=== PATIENT | female | born 1960 | race African-American/Black ===

== ENCOUNTER → 2018-11-28 09:47 | Outpatient (CLI) | payer MEDICARE, MEDICAID | END | disposition home or self-care (01) | LOC: D.MRI 09:47 | DX: S83.231A Complex tear of medial meniscus, current injury, right knee, initial encounter (principal) ==

== ENCOUNTER 2019-01-09 06:24 | Day surgery (SDC) | payer MEDICARE, MEDICAID ==
[~2019-01-09] VITALS: Ht 167.6 cm; Wt 104.3 kg
[~2019-01-09 06:24] MED LIST: BAYER CHEWABLE81 MG PO; CENTRUM SILVER1 EAC3 PO; HYDRALAZINE HCL25 MG PO; LIPITOR20 MG PO; LOSARTAN/HCT TAB 50-; TYLENOL W/CODEI1 TAB PO
[2019-01-09 06:43] LABS: HEMATOCRIT 35.5 % (36.0-48.0); HEMOGLOBIN 11.6 g/dL (12-16); MCH 27.4 pg (26.0-34.0); MCHC 32.7 g/dL (31.0-37.0); MCV 83.9 fL (80.0-100.0); MEAN PLATELET VOLUME 9.4 fL (7.4-10.4); RBC 4.23 10x6/uL (4.00-5.40); RDW 13.3 % (11.5-14.5)
[2019-01-09 07:34] VITALS: BP 116/65; Ht 167.6 cm; Wt 104.3 kg
[2019-01-09] MEDS ORDERED: HYDROCODON-ACE1 EA10 PO (09:35)
--- NOTE | 2019-01-09 09:45 | NUR ---
CARE TRANSFERRED TO YENY VITALE RN
--- NOTE | 2019-01-09 09:48 | NUR ---
CARE ASSUMED FROM CASE KERNS RN
--- NOTE | 2019-01-09 15:33 | NUR ---
1126 IV DC'D. CATHETER INTACT. NO BLEEDING AT SITE. BANDAID APPLIED.
--- NOTE | 2019-01-16 11:53 | OP ---
PATIENT NAME: TERESITA LORENZO MEDICAL RECORD: [id number] :56 LOCATION:[facility]AN ADMISSION DATE: SURGEON: ADAM ALDANA MD DATE OF OPERATION: 01/09/2019 PREOPERATIVE DIAGNOSIS: Lateral meniscus tear. POSTOPERATIVE DIAGNOSES: Lateral meniscus tear plus 2.2 mm chondral defect of the medial femoral condyle. PROCEDURES: 1. Arthroscopic partial lateral meniscectomy, right knee. 2. Arthroscopic abrasion chondroplasty of the medial femoral condyle. SURGEON: Adam Aldana MD ANESTHESIA: General. INTRAOPERATIVE COMPLICATIONS: None. SUMMARY OF PATHOLOGIC FINDINGS: Consistent with preoperative diagnosis, the patient had a complex tear of the posterior horn of the lateral meniscus; however, at the time of surgery she was found to have an articular defect as described above and that my opinion was best warranted to be treated with abrasion chondroplasty using the power pick from [employer]. OPERATIVE SUMMARY IN DETAIL: After obtaining the appropriate preoperative orthopedic surgery consent as well as anesthetic consultation, evaluation and clearance, the patient was brought to the operating room and placed on the operating table in supine position. After general laryngeal mask was administered, tourniquet was placed about the proximal aspect of the right lower extremity. Right lower extremity was then prepped and draped in routine sterile fashion. At this point, the appropriate timeout was taken along with all the patient identifiers agreed upon by all in the operative suite. The leg was elevated and exsanguinated, tourniquet was inflated to 350 mmHg. Routine inferolateral portal was established followed by superomedial portal and inferomedial portal. Diagnostic arthroscopy revealed the above findings. Attention was first turned to arthroscopic partial lateral meniscectomy. A combination of 3.5 full-radius resector as well as an arthroscopic meniscotome was utilized to debride the lateral meniscus back to stable meniscal elements resulting in good retained remnants of the lateral meniscus. Although tear was complex, it was not deep. Having completed this, attention was turned to the medial femoral condyle under direct arthroscopic visualization. The power pick from [employer] was utilized to place approximately 5 drill holes passed the tied germaine hoping to stimulate pseudocartilage regrowth. Having completed this, the knee was insufflated with plain Marcaine. Arthroscopy portals were closed in routine interrupted fashion using 4-0 Prolene. Sterile dressings were applied. The patient was awakened and taken to the recovery room in stable condition. All final needle and sponge counts were correct. TRANSINT:[id number] Voice Confirmation ID: [id number] DOCUMENT ID: [id number] OPERATIVE REPORT [id number] TERESITA LORENZO MD, ADAM PATRICIA at 1153 CC: [id number] DICTATION DATE: 01/16/19 1124 DECORATOR MANNEQUIN: 01/16/19 1148 [facility] 01/09/19 [address] [place] [address]
== END 2019-01-09 12:10 | disposition home or self-care (01) ==
LOC: D.OPS 06:24 → D.PAN 08:15 → D.OPS 09:00
PROVIDERS: Anesthesiology; ATTEND Orthopaedic Surgery
DX: S83.271A Complex tear of lateral meniscus, current injury, right knee, initial encounter (principal); M21.851 Other specified acquired deformities of right thigh; Z01.812 Encounter for preprocedural laboratory examination

== ENCOUNTER 2019-05-26 07:37 | Day surgery (SDC) | payer MEDICARE ==
[~2019-05-26] VITALS: Ht 167.6 cm; Wt 99.8 kg
[~2019-05-26 07:37] MED LIST changes: +HYDROCODON-ACE1 EA10 PO
[2019-05-26 08:02] LABS: HEMATOCRIT 38.1 % (36.0-48.0); HEMOGLOBIN 12.3 g/dL (12-16); MCH 27.9 pg (26.0-34.0); MCHC 32.3 g/dL (31.0-37.0); MCV 86.4 fL (80.0-100.0); MEAN PLATELET VOLUME 9.8 fL (7.4-10.4); RBC 4.41 10x6/uL (4.00-5.40); RDW 13.3 % (11.5-14.5); WBC 5.5 10x3/uL (4.8-10.8)
[2019-05-26] MEDS ORDERED: K-TAB10 MEQ PO (09:09)
[2019-05-26 09:14] VITALS: BP 133/69; Ht 167.6 cm; Wt 99.8 kg
--- NOTE | 2019-06-09 13:08 | OP ---
PATIENT NAME: TERESITA LORENZO MEDICAL RECORD: [id number] :56 LOCATION:MELI ADMISSION DATE: SURGEON: ADAM ALDANA MD DATE OF OPERATION: 05/26/2019 PREOPERATIVE DIAGNOSIS: Osteoarthritis, left hip. POSTOPERATIVE DIAGNOSIS: Osteoarthritis, left hip. PROCEDURE: Left hip injection under fluoroscopy. SURGEON: Adam Aldana MD ANESTHESIA: TIVA. INTRAOPERATIVE COMPLICATIONS: None. SUMMARY OF PATHOLOGIC FINDINGS: Consistent with preoperative diagnosis, the patient is tovf-rz-wrrigkor hip arthritis of the left hip, but also had substantial morbid obesity. OPERATIVE SUMMARY IN DETAIL: After obtaining the appropriate preoperative orthopedic surgery consent as well as anesthetic consultation, evaluation and clearance, the patient was brought to the operating room and placed on the operating table in a supine position. After general laryngeal mask airway was administered, the patient's right hip was prepped and draped. After adequate general TIVA anesthesia was administered, the patient's right hip was prepped and draped in routine sterile fashion. The needle tip was then advanced into the hip were a small amount of Isovue was utilized to be sure that the needle was in the appropriate position. This was then followed by 80 mg of Depo-Medrol approximately 6 cc of 0.25% Marcaine with epinephrine. This was withdrawn. Sterile dressings were applied. The patient was awakened and taken to recovery room in stable condition. All final needle and sponge counts were correct. TRANSINT:[id number] Voice Confirmation ID: [id number] DOCUMENT ID: [id number] 06/09/2019 Edited procedure per office, dmm. ADMA ALDANA MD at 1308 CC: [id number] DICTATION DATE: 05/26/19 1124 MUTUAL FUND SALES AGENT: 05/26/19 1505 DEP [facility] 05/26/19 [id number] [place] [address]
== END 2019-05-26 12:52 | disposition home or self-care (01) ==
LOC: D.OPS 07:37 → D.PAN 10:45 → D.OPS 12:52 → D.PAN 13:30 → D.OPS 14:45
PROVIDERS: Anesthesiology; ATTEND Orthopaedic Surgery
DX: M16.12 Unilateral primary osteoarthritis, left hip (principal); M25.562 Pain in left knee; M25.561 Pain in right knee

== ENCOUNTER → 2020-02-18 18:58 | Outpatient (CLI) | payer MEDICARE, MEDICAID ==
[2019-05-26 09:14] VITALS: BMI 35.6
[~2020-02-18 18:58] MED LIST changes: +K-TAB10 MEQ PO
== END | disposition home or self-care (01) ==
LOC: D.LABREF 18:58
PROVIDERS: ATTEND Orthopaedic Surgery
DX: M17.12 Unilateral primary osteoarthritis, left knee (principal)

== ENCOUNTER 2020-03-01 15:37 | Inpatient (IN) | payer MEDICARE, MEDICAID ==
[~2020-03-01] VITALS: Ht 167.6 cm; Wt 108.9 kg
[~2020-03-01 15:37] MED LIST changes: -LOSARTAN/HCT TAB 50-; +LOSARTAN/HCT TAB 50- PO
[2020-03-17] MEDS ORDERED: ATARAX 25 MG TA25 MG PO (10:52)
[2020-03-17] MEDS ORDERED: HYDROCODONE/APAP PO (10:56)
[2020-03-17] MEDS ORDERED: FAMOTIDINE10 MG PO (10:57)
[2020-03-17] MEDS ORDERED: LIPITOR20 MG PO (10:57)
[2020-03-17] MEDS ORDERED: LOSARTAN-HCTZ1 EAC1 PO (11:00)
[2020-03-17 11:53] LABS: BILIRUBIN NEGATIVE (NEGATIVE); KETONE NEGATIVE (NEGATIVE); NITRITE NEGATIVE (NEGATIVE); UROBILINOGEN NORMAL mg/dL (< 2)
[2020-03-17 11:54] LABS: HEMATOCRIT 38.3 % (36.0-48.0); HEMOGLOBIN 12.1 g/dL (12-16); MCH 26.8 pg (26.0-34.0); MCHC 31.6 g/dL (31.0-37.0); MCV 84.7 fL (80.0-100.0); MEAN PLATELET VOLUME 9.4 fL (7.4-10.4); PLATELET COUNT 349 10x3/uL (130-400); RBC 4.52 10x6/uL (4.00-5.40); RDW 13.5 % (11.5-14.5); WBC 5.5 10x3/uL (4.8-10.8)
[2020-03-17 12:02] LABS: APTT 28.4 SECONDS (22.8-39.4); INR 0.95 (0.85-1.17); PROTIME 12.6 SECONDS (11.6-15.0)
[2020-03-17 12:08] LABS: CALC OSMOLALITY 270 mosm/kg (275-300); CALCIUM 9.8 mg/dL (8.5-10.1); CARBON DIOXIDE 28.3 mmol/L (21.0-32.0); CHLORIDE - SERUM 100 mmol/L (98-107); CREATININE - SERUM 0.8 mg/dL (0.6-1.3); GLUCOSE 98 mg/dL (74-106); POTASSIUM - SERUM 3.5 mmol/L (3.5-5.1); SODIUM 136 mmol/L (136-145); UREA NITROGEN 9 mg/dL (7-18); eGFR NON AFRICAN AMERICAN 77 mL/min (90-120)
[2020-03-17 13:30] LABS: LYMPHOCYTES 60 % (15-50); MONOCYTES 6 % (2-11); NEUTROPHILS 34 % (40-80); PLATELET ESTIMATE NORMAL
[2020-03-22] VITALS (10 sets, daily range): BP systolic 110–153; BP diastolic 45–103; BMI 38.8
--- NOTE | 2020-03-22 10:43 | NUR ---
0940 BLOCK TO LEFT KNEE COMPLETED BY ANESTHESIA. 0945 VSS. PT STATES PAIN LEVEL IS A 0 OUT OF 10. RESPIRATIONS UNLABORED AND EVEN.
--- NOTE | 2020-03-22 12:20 | NUR ---
PLASMA BLADE USED ON SETTING 6/8. CAUTERY PAD PLACED ON RIGHT THIGH. LOT #[id number] EXP.06/20/2021
--- NOTE | 2020-03-22 13:45 | NUR ---
RECEIVED TO ROOM 1210 VIA BED FROM PACU. A/O X3. SON AT BEDSIDE. DRESSING TO LEFT KNEE IS DRY AND INTACT. DENIES PAIN AT THIS TIME.
--- NOTE | 2020-03-22 15:51 | NUR ---
PLACED ON HIGH FLOW O2 AT 2L. SATS UP IN THE 90'S. PATIENT IS ASYMPTOMATIC AT ALL TIMES. HANDS ARE VERY COLD. WILL MONITOR.
--- NOTE | 2020-03-22 16:17 | NUR ---
PULSE OX MAINTAINING 98-100% ON 2L WITH HIGH FLOW TUBING. WILL CONTINUE TO MONITOR.
--- NOTE | 2020-03-22 16:37 | NUR ---
ASSISTED WITH BED OBRIEN PER STAFF. VOIDED 200CC CLEAR YELLOW URINE. SKIN CARE PER STAFF.
--- NOTE | 2020-03-22 17:30 | NUR ---
ATE ABOUT HALF OF SUPPER BUT WAS STILL FULL FROM LATE LUNCH. PLACED ON CPM AT THIS TIME. NO C/O PAIN WITH ACTIVITY. DENIES NEEDS. NO CHANGES NOTED.
--- NOTE | 2020-03-22 19:13 | NUR ---
PATIENT RESTING IN BED WITH NO S/S OF DISTRESS. CPM TO LEFT KNEE. ASSISTED PATIENT ON AND OFF BEDPAN WITH GERMAN GONZALEZ. PATIENT DENIES OTHER NEEDS AT THIS TIME. BED IN LOWEST POSITION AND CALL LIGHT WITHIN REACH. ENCOURAGED THE PATIENT TO CALL IF HE HAS NEEDS. EMPTED 1000ML FROM CATH BAG. WILL CONTINUE TO MONITOR.
--- NOTE | 2020-03-22 20:00 | NUR ---
ADMINISTERED MEDS PER ORDERS. PATIENT DENIES OTHER NEEDS. WILL CONTINUE TO MONITOR.
--- NOTE | 2020-03-22 20:30 | NUR ---
PATIENT OFF CPM. ASSISTED PATIENT ON AND OFF BEDPAN. DENIES OTHER NEEDS. WILL CONTINUE TO MONITOR.
--- NOTE | 2020-03-22 23:29 | NUR ---
PATIENT RESTING IN BED WITH NO S/S OF DISTRESS. CPM TO LEFT KNEE. ASSISTED PATIENT ON AND OFF BEDPAN WITH GERMAN GONZALEZ. PATIENT DENIES OTHER NEEDS AT THIS TIME. BED IN LOWEST POSITION AND CALL LIGHT WITHIN REACH. ENCOURAGED THE PATIENT TO CALL IF SHE HAS NEEDS. WILL CONTINUE TO MONITOR.
[2020-03-23 04:14] VITALS: BP 106/60
[2020-03-23 05:24] LABS: HEMATOCRIT 29.9 % (36.0-48.0); HEMOGLOBIN 9.5 g/dL (12-16); MCH 27.1 pg (26.0-34.0); MCHC 31.8 g/dL (31.0-37.0); MCV 85.2 fL (80.0-100.0); MEAN PLATELET VOLUME 9.4 fL (7.4-10.4); RBC 3.51 10x6/uL (4.00-5.40); RDW 13.5 % (11.5-14.5); WBC 10.8 10x3/uL (4.8-10.8)
--- NOTE | 2020-03-23 07:38 | NUR ---
ALERT AND ORIENTED. LUNGS CLEAR BILATERALLY. HEART SOUNDS S1 AND S2 HEARD IN ALL HARRY. BOWEL SOUNDS ACTIVE X 4. IV TO RIGHT AC PATENT WITHOUT REDNESS. CPM REMOVED. PATIENT DENIES FURTHER NEEDS. BED LOW. CALL LINN AND PERSONAL ITEMS IN REACH. WILL CONTINUE TO MONITOR.
[2020-03-23 07:41] VITALS: BP 130/71
--- NOTE | 2020-03-23 09:40 | NUR ---
PATIENT ASSISTED TO CHAIR AT BEDSIDE PER PT. OKAY GIVEN BY PT TO GET PATIENT UP AND DOWN TO CHAIR AND BATHROOM.
[2020-03-23 11:09] VITALS: Ht 167.6 cm; Wt 108.9 kg
--- NOTE | 2020-03-23 11:26 | NUR ---
ASSISTED TO AND FROM BEDSIDE COMMODE WITH MINIMAL ASSIST.
[2020-03-23 11:28] VITALS: BP 127/68
--- NOTE | 2020-03-23 12:45 | MORECARE ---
CASE MANAGEMENT DISCHARGE SUMMARY PATIENT: TERESITA LORENZO GA UNIT: [id number] ADM DATE: 03/22/20 AGE: 59 : 56 SEX: F ROOM/BED: D.1210 AUTHOR: SURY JENNINGS PHYSICIAN: REFERRING PHYSICIAN: ADAM ALDANA MD DATE OF SERVICE: 03/23/20 Discharge Plan Patient Name: TERESITA LORENZO [facility] [facility] 1960 Planned Disposition: Anticipated Discharge Date: Discharge Date: Expected LOS: Initial Reviewer: [email or web address] Initial Review Date: 03/22/2020 Generated: 03/23/20 1:45 pm Patient Name: TEREISTA LORENZO Page [id number] at 1245 All edits/amendments must be made on the electronic document DICTATION DATE: 03/23/20 1245 FOREIGN LANGUAGE INSTRUCTOR: ROSELIA 03/23/20 1245 RPT#: [id number] DC DATE: STATUS: ADM IN [facility] [address] [place] [address] END OF REPORT
--- NOTE | 2020-03-23 13:56 | MORECARE ---
CASE MANAGEMENT DISCHARGE SUMMARY PATIENT: TERESITA LORENZO GA UNIT: [id number] ADM DATE: 03/22/20 AGE: 59 : 56 SEX: F ROOM/BED: D.1210 AUTHOR: SURY JENNINGS PHYSICIAN: REFERRING PHYSICIAN: ADAM ALDANA MD DATE OF SERVICE: 03/23/20 Discharge Plan Patient Name: TERESITA LORENZO [facility] : 1960 Planned Disposition: Outpatient PT\OT Anticipated Discharge Date: Discharge Date: Expected LOS: Initial Reviewer: [email or web address] Initial Review Date: 03/22/2020 Generated: 03/23/20 2:56 pm Last DP export: 03/23/20 11:45 a Patient Name: TERESITA LORENZO Page [id number] at 1356 All edits/amendments must be made on the electronic document DICTATION DATE: 03/23/20 1356 VIDEO RECORDER MECHANIC: ROSELIA 03/23/20 1356 RPT#: [id number] DC DATE: STATUS: ADM IN [facility] [address] [place] [address] END OF REPORT
--- NOTE | 2020-03-23 14:17 | MORECARE ---
CASE MANAGEMENT DISCHARGE SUMMARY PATIENT: TERESITA LORENZO UNIT: [id number] ADM DATE: 03/22/20 AGE: 59 : 56 SEX: F ROOM/BED: D.1210 AUTHOR: MICHAELA,DOC PHYSICIAN: REFERRING PHYSICIAN: ADAM ALDANA MD DATE OF SERVICE: 03/23/20 Discharge Plan Patient Name: TERESITA LORENZO Facility: [facility]:[place] : 1960 Planned Disposition: Outpatient PT\OT Anticipated Discharge Date: Discharge Date: Expected LOS: Initial Reviewer: [email or web address] Initial Review Date: 03/22/2020 Generated: 03/23/20 3:16 pm Comments DCP- Discharge Planning Updated by [id number]: Chanel Lozano on 03/23/20 1:[address] CM met with patient to discuss initial discharge planning. Patient is in agreement to proceed . Patient reports that she lives at home independently. Patient is alert/oriented. Stairs/steps: 2. PCP: Dr. Marcos Swanson. [facility] [facility]. Patient states she has been able to obtain all of her prescribed medications. HHS: No. DME: Sha, MARCIA, BSC delivered [employer]. Patient gives permission to speak with family members. Emergency contact: Xuan Colon (dtr) [phone]. Patient states her address is: [address] # [phone]. Patient is Independent with all ADL's, medication management [employer]. CM discussed the availability of HH, Rehab, SNF, OP Therapy, DME services. Patient request [facility] OP Therapy. Patient states she will go home with her daughter, Xuan, for approximately a week. Verified with patient that she has transportation to and from the therapist, patient verifies same.Patient denies hospitalization within the past 30 days. Patient denies the use of community resources [employer]. Transportation at time of discharge: Patient's son, who has a car that she can get in and out of easily. CM will follow and assist PRN with DC needs. DCPIA - Discharge Planning Initial Assessment Updated by [email or web address]: Chanel Lozano on 03/23/20 1:57 pm * Is the patient Alert and Oriented? Yes * How many steps to enter\exit or inside your home? * PCP Dr. Marcos Swanson * Pharmacy [facility], [place] * Preadmission Environment Home Alone * ADLs Independent * Equipment Bedside Commode Oxygen Rolling Walker * Other Equipment CPM * List name and contact numbers for known caregivers / representatives who currently or will assist patient after discharge: Xuan Colon (dtr) [phone] Plans to stay with her daughter after DC * Verbal permission to speak to the caregivers and representatives has been obtained from the patient. Yes * Community resources currently utilized None * Please name any agencies selected above. [facility] OP Therapy * Additional services required to return to the preadmission environment? Yes * Can the patient safely return to the preadmission environment? No * Has this patient been hospitalized within the prior 30 days at any hospital? No Last DP export: 03/23/20 12:56 p Patient Name: TERESITA LORENZO Page [id number] at 1417 All edits/amendments must be made on the electronic document DICTATION DATE: 03/23/20 1416 TEMPLATE LAYOUT WORKER: ROSELIA 03/23/20 1416 RPT#: [id number] DC DATE: STATUS: ADM IN [facility] [address] [place] [address] END OF REPORT
--- NOTE | 2020-03-23 15:43 | MORECARE ---
CASE MANAGEMENT DISCHARGE SUMMARY PATIENT: TERESITA LORENZO UNIT: [id number] ADM DATE: 03/22/20 AGE: 59 : 56 SEX: F ROOM/BED: D.1210 AUTHOR: MICHAELA,DOC PHYSICIAN: REFERRING PHYSICIAN: DAAM ALDANA MD DATE OF SERVICE: 03/23/20 Discharge Plan Patient Name: TERESITA LORENZO Facility: [facility]:[place] : 1960 Planned Disposition: Outpatient PT\OT Anticipated Discharge Date: Discharge Date: Expected LOS: Initial Reviewer: [email or web address] Initial Review Date: 03/22/2020 Generated: 03/23/20 4:43 pm Comments DCP- Discharge Planning Updated by [email or web address]: Chanel Lozano on 03/23/20 1:[address] CM met with patient to discuss initial discharge planning. Patient is in agreement to proceed . Patient reports that she lives at home independently. Patient is alert/oriented. Stairs/steps: 2. PCP: Dr. Marcos Swanson. [facility]. Patient states she has been able to obtain all of her prescribed medications. HHS: No. DME: Sha, MARCIA, BSC delivered [employer]. Patient gives permission to speak with family members. Emergency contact: Xuan Colon (dtr) [phone]. Patient states her address is: [address] # [phone]. Patient is Independent with all ADL's, medication management [employer]. CM discussed the availability of HH, Rehab, SNF, OP Therapy, DME services. Patient request [facility] OP Therapy. Patient states she will go home with her daughter, Xuan, for approximately a week. Verified with patient that she has transportation to and from the therapist, patient verifies same.Patient denies hospitalization within the past 30 days. Patient denies the use of community resources [employer]. Transportation at time of discharge: Patient's son, who has a car that she can get in and out of easily. CM will follow and assist PRN with DC needs. DCPIA - Discharge Planning Initial Assessment Updated by [email or web address]: Chanel Lozano on 03/23/20 1:57 pm * Is the patient Alert and Oriented? Yes * How many steps to enter\exit or inside your home? * PCP Dr. Marcos Swanson * Pharmacy [facility], [place] * Preadmission Environment Home Alone * ADLs Independent * Equipment Bedside Commode Oxygen Rolling Walker * Other Equipment CPM * List name and contact numbers for known caregivers / representatives who currently or will assist patient after discharge: Xuan Colon (dtr) [phone] Plans to stay with her daughter after DC * Verbal permission to speak to the caregivers and representatives has been obtained from the patient. Yes * Community resources currently utilized None * Please name any agencies selected above. [facility] OP Therapy * Additional services required to return to the preadmission environment? Yes * Can the patient safely return to the preadmission environment? No * Has this patient been hospitalized within the prior 30 days at any hospital? No External Providers External Provider: OTHER-OTHER Next Contact Date: Service Request Date: Service Type: Resolution: Reviewer: Comments: Last DP export: 03/23/20 1:17 p Patient Name: TERESITA LORENZO Page [id number] at 1543 All edits/amendments must be made on the electronic document DICTATION DATE: 03/23/20 1543 PLUMBER MAINTENANCE: ROSELIA 03/23/20 1543 RPT#: [id number] DC DATE: STATUS: ADM IN [facility] [address] [place] [address] END OF REPORT
--- NOTE | 2020-03-23 15:52 | MORECARE ---
CASE MANAGEMENT DISCHARGE SUMMARY PATIENT: JANNA CROSS UNIT: [id number] ADM DATE: 03/22/20 AGE: 59 : 56 SEX: F ROOM/BED: D.1210 AUTHOR: MICHAELA,DOC PHYSICIAN: REFERRING PHYSICIAN: ADAM ALDANA MD DATE OF SERVICE: 03/23/20 Discharge Plan Patient Name: JANNA CROSS Facility: [facility]:[place] : 1960 Planned Disposition: Outpatient PT\OT Anticipated Discharge Date: Discharge Date: Expected LOS: Initial Reviewer: [email or web address] Initial Review Date: 03/22/2020 Generated: 03/23/20 4:51 pm Comments DCP- Discharge Planning Updated by [email or web address]: Chanel Lozano on 03/23/20 2:[address] CM contacted Audra,with [facility] ([phone]) regarding OP Therapy. Faxed required information Audra @ [phone]. CM met with patient to discuss initial discharge planning. Patient is in agreement to proceed . Patient reports that she lives at home independently. Patient is alert/oriented. Stairs/steps: 2. PCP: Dr. Marcos Swanson. Pharmacy: [facility]. Patient states she has been able to obtain all of her prescribed medications. HHS: No. DME: MARCIA Dalton, BSC delivered PUBLIC[employer] EXP[employer]. Patient gives permission to speak with family members. Emergency contact: Xuan Colon (dtr) [phone]. Patient states her address is: [address] # [phone]. Patient is Independent with all ADL's, medication management [employer]. CM discussed the availability of HH, Rehab, SNF, OP Therapy, DME services. Patient request [facility] OP Therapy. Patient states she will go home with her daughter, Xuan, for approximately a week. Verified with patient that she has transportation to and from the therapist, patient verifies same.Patient denies hospitalization within the past 30 days. Patient denies the use of community resources [employer]. Transportation at time of discharge: Patient's son, who has a car that she can get in and out of easily. CM will follow and assist PRN with DC needs. DCPIA - Discharge Planning Initial Assessment Updated by [email or web address]: Chanel Lozano on 03/23/20 1:57 pm * Is the patient Alert and Oriented? Yes * How many steps to enter\exit or inside your home? * PCP Dr. Marcos Swanson * Pharmacy [facility], [place] * Preadmission Environment Home Alone * ADLs Independent * Equipment Bedside Commode Oxygen Rolling Walker * Other Equipment CPM * List name and contact numbers for known caregivers / representatives who currently or will assist patient after discharge: Xuan Colon (dtr) [phone] Plans to stay with her daughter after DC * Verbal permission to speak to the caregivers and representatives has been obtained from the patient. Yes * Community resources currently utilized None * Please name any agencies selected above. [facility] OP Therapy * Additional services required to return to the preadmission environment? Yes * Can the patient safely return to the preadmission environment? No * Has this patient been hospitalized within the prior 30 days at any hospital? No Coverage Notice Reviewer: [id number] - Chanel Lozano Notice Issued Date-Time: 03/23/2020 15:48 Notice Type: Patient Choice Letter Notice Delivered To: Patient Relationship to Patient: Self [employer] Fscm Developer Name: Janna Cross Delivery Method: HAND - Hand Delivered Erendira Days: Prior Verbal Notification: Recipient Understood Notice: Yes Recipient Signature: Med Rec Note Co-signed by Attending: Coverage Notice Comment: [facility] OP Therapy Last DP export: 03/23/20 2:43 p Patient Name: JANNA CROSS Page [phone] at 1552 All edits/amendments must be made on the electronic document DICTATION DATE: 03/23/20 1552 PIPED BUTTONHOLE MACHINE OPERATOR: ROSELIA 03/23/20 1552 RPT#: [id number] DC DATE: STATUS: ADM IN [facility] [address] [place] [address] END OF REPORT
--- NOTE | 2020-03-23 15:56 | NUR ---
RESTING IN BED. WILL CONTINUE TO MONITOR.
--- NOTE | 2020-03-23 16:06 | NUR ---
CPM PLACED ON PATIENT.
--- NOTE | 2020-03-23 16:07 | OP ---
PATIENT NAME: TERESITA LORENZO MEDICAL RECORD: [id number] :56 LOCATION:D.M3 D.1210 ADMISSION DATE:03/22/20 SURGEON: ADAM ALDANA MD DATE OF OPERATION: 03/22/2020 PREOPERATIVE DIAGNOSIS: Degenerative arthritis, left knee. POSTOPERATIVE DIAGNOSIS: Degenerative arthritis, left knee. PROCEDURE: Left total knee arthroplasty. SURGEON: Adam Aldana MD LOG RAFT WORKER EVER Silva INTRAOPERATIVE COMPLICATIONS: None. SUMMARY OF PATHOLOGIC FINDINGS: The patient was indeed found to have osteoarthritis consistent with preoperative radiographs. IMPLANTS USED: Dalia triathlon total knee arthroplasty, press fit, size 3 distal femur, size 4 tibial baseplate, size 4 x 9 X3 polyethylene insert and a size 31 x 9 press fit patella symmetric. OPERATIVE SUMMARY IN DETAIL: After obtaining the appropriate preoperative orthopedic surgery consent as well as anesthetic consultation, evaluation and clearance, the patient was brought to the operating room and placed on the operative table in supine position. After general laryngeal mask airway was administered, tourniquet was placed in the proximal aspect of left lower extremity. Left lower extremity was then prepped and draped in a routine sterile fashion. The leg was elevated and exsanguinated, tourniquet inflated to 350 mmHg. At this point, the appropriate timeout was taken and given the patient's unique identifiers and agreed upon by all. In the midline incision was taken down for paramedian arthrotomy. Patella was everted, distal femur was exposed. Soft tissue excision was done in the usual fashion. An intramedullary guide hole was created for intramedullary guided distal femoral cuts. This was followed by complete exposure of the proximal tibia. Likewise, intramedullary guide hole was created for proximal tibial cutting. Having completed this, appropriate measurements taken. Chamfer cuts were made on the distal femur. This was followed by placement of the trials corresponding to the above-mentioned final implants. Trials were taken through range of motion and found to be stable in all planes. Final distal femoral preparation as well as proximal tibial preparations were followed by excision of the severely arthritic patella. The patella was prepped for press fitting. The entire cavity was then copiously irrigated with a pulsatile lavage irrigation. Having completed this, final components were put into place. The knee was taken through range of motion and found to have slight patellar subluxation; therefore, lateral release was performed. Having completed this, good tracking was noted. A gram of vancomycin and a gram of tobramycin placed in to the wound. Paramedian arthrotomy was then closed with #2 Ethibond by Paolo Dalton followed by #1 Vicryl, 2-0 Vicryl and skin kaykay. Sterile dressings were applied. The patient was awakened and taken to the recovery room in stable condition. All final needle and sponge counts were correct. OPERATIVE REPORT [id number] TERESITA LORENZO GA TRANSINT:[id number] Voice Confirmation ID: [id number] DOCUMENT ID: [id number] JOVAN NAPIER, ADAM PATRICIA at 1607 CC: [id number] DICTATION DATE: 03/22/20 1255 CHAIN MAKER MACHINE: 03/22/20 2201 ADM IN [address] [place] [address]
--- NOTE | 2020-03-23 16:31 | MORECARE ---
CASE MANAGEMENT DISCHARGE SUMMARY PATIENT: JANNA CROSS GA UNIT: [id number] ADM DATE: 03/22/20 AGE: 59 : 56 SEX: F ROOM/BED: D.1210 AUTHOR: MICHAELA,DOC PHYSICIAN: REFERRING PHYSICIAN: ADAM ALDANA MD DATE OF SERVICE: 03/23/20 Discharge Plan Patient Name: JANNA CROSS Facility: [facility]:[place] : 1960 Planned Disposition: Home or Self Care Anticipated Discharge Date: 03/24/20 Discharge Date: Expected LOS: 2 Initial Reviewer: [email or web address] Initial Review Date: 03/22/2020 Generated: 03/23/20 5:30 pm Comments DCP- Discharge Planning Updated by [email or web address]: Chanel Lozano on 03/23/20 3:[address] Patient has chosen [facility], , Fx #[phone]. CM spoke with [place], provided required information and faxed to above number. Patient will go to her daughter's home at [address] [place] [address], [place] [address]. . CM met with patient to discuss initial discharge planning. Patient is in agreement to proceed . Patient reports that she lives at home independently. Patient is alert/oriented. Stairs/steps: 2. PCP: Dr. Marcos Swanson. Pharmacy: [facility]. Patient states she has been able to obtain all of her prescribed medications. [facility]: No. DME: MARCIA Dalton, BSC delivered TEACHING AIDE. Patient gives permission to speak with family members. Emergency contact: Xuan Colon (dtr) [phone]. Patient states her address is: [address] . Patient is Independent with all ADL's, medication management TEACHING AIDE. CM discussed the availability of HH, Rehab, SNF, OP Therapy, DME services. Patient request [facility] OP Therapy. Patient states she will go home with her daughter, Xuan, for approximately a week. Verified with patient that she has transportation to and from the therapist, patient verifies same.Patient denies hospitalization within the past 30 days. Patient denies the use of community resources TEACHING AIDE. Transportation at time of discharge: Patient's son, who has a car that she can get in and out of easily. CM will follow and assist PRN with DC needs. DCPIA - Discharge Planning Initial Assessment Updated by [email or web address]: Chanel Lozano on 03/23/20 1:57 pm * Is the patient Alert and Oriented? Yes * How many steps to enter\exit or inside your home? * PCP Dr. Marcos Swanson * Pharmacy [facility], [place] * Preadmission Environment Home Alone * ADLs Independent * Equipment Bedside Commode Oxygen Rolling Walker * Other Equipment CPM * List name and contact numbers for known caregivers / representatives who currently or will assist patient after discharge: Xuan Colon (dtr) [phone] Plans to stay with her daughter after DC * Verbal permission to speak to the caregivers and representatives has been obtained from the patient. Yes * Community resources currently utilized None * Please name any agencies selected above. [facility] OP Therapy * Additional services required to return to the preadmission environment? Yes * Can the patient safely return to the preadmission environment? No * Has this patient been hospitalized within the prior 30 days at any hospital? No Coverage Notice Reviewer: [id number] - Chanel Lozano Notice Issued Date-Time: 03/23/2020 15:48 Notice Type: Patient Choice Letter Notice Delivered To: Patient Relationship to Patient: Self Wet Machine Cutter Name: Janna Cross Delivery Method: HAND - Hand Delivered Erendira Days: Prior Verbal Notification: Recipient Understood Notice: Yes Recipient Signature: Med Rec Note Co-signed by Attending: Coverage Notice Comment: [facility] Last DP export: 03/23/20 2:52 p Patient Name: JANNA CROSS Page [id number] at 1631 All edits/amendments must be made on the electronic document DICTATION DATE: 03/23/20 163 ORNAMENTAL IRON ERECTOR: ROSELIA 03/23/20 163 RPT#: [id number] DC DATE: STATUS: ADM IN [facility] [address] [place] [address] END OF REPORT
--- NOTE | 2020-03-23 17:40 | MORECARE ---
CASE MANAGEMENT DISCHARGE SUMMARY PATIENT: JANNA CROSS GA UNIT: [id number] ADM DATE: 03/22/20 AGE: 59 : 56 SEX: F ROOM/BED: D.1210 AUTHOR: MICHAELA,DOC PHYSICIAN: REFERRING PHYSICIAN: ADAM ALDANA MD DATE OF SERVICE: 03/23/20 Discharge Plan Patient Name: JANNA CROSS Facility: [facility]:[place] : 1960 Planned Disposition: Home or Self Care Anticipated Discharge Date: 03/24/20 Discharge Date: Expected LOS: 2 Initial Reviewer: [email or web address] Initial Review Date: 03/22/2020 Generated: 03/23/20 6:40 pm Comments DCP- Discharge Planning Updated by [email or web address]: Chanel Lozano on 03/23/20 3:[address] Patient has chosen [facility], , Fx #[phone]. CM spoke with [place], provided required information and faxed to above number. Patient will go to her daughter's home at [address] [place] [address], [place] [address]. . CM met with patient to discuss initial discharge planning. Patient is in agreement to proceed . Patient reports that she lives at home independently. Patient is alert/oriented. Stairs/steps: 2. PCP: Dr. Marcos Swanson. Pharmacy: [facility]. Patient states she has been able to obtain all of her prescribed medications. [facility]: No. DME: MARCIA Dalton, BSC delivered DISTRICT MANAGER PRIMARY CARE SALES. Patient gives permission to speak with family members. Emergency contact: Xuan Colon (dtr) [phone]. Patient states her address is: [address] . Patient is Independent with all ADL's, medication management DISTRICT MANAGER PRIMARY CARE SALES. CM discussed the availability of HH, Rehab, SNF, OP Therapy, DME services. Patient request [facility] OP Therapy. Patient states she will go home with her daughter, Xuan, for approximately a week. Verified with patient that she has transportation to and from the therapist, patient verifies same.Patient denies hospitalization within the past 30 days. Patient denies the use of community resources DISTRICT MANAGER PRIMARY CARE SALES. Transportation at time of discharge: Patient's son, who has a car that she can get in and out of easily. CM will follow and assist PRN with DC needs. DCPIA - Discharge Planning Initial Assessment Updated by [email or web address]: Chanel Lozano on 03/23/20 1:57 pm * Is the patient Alert and Oriented? Yes * How many steps to enter\exit or inside your home? * PCP Dr. Marcos Swanson * Pharmacy [facility], [place] * Preadmission Environment Home Alone * ADLs Independent * Equipment Bedside Commode Oxygen Rolling Walker * Other Equipment CPM * List name and contact numbers for known caregivers / representatives who currently or will assist patient after discharge: Xuan Colon (dtr) [phone] Plans to stay with her daughter after DC * Verbal permission to speak to the caregivers and representatives has been obtained from the patient. Yes * Community resources currently utilized None * Please name any agencies selected above. [facility] OP Therapy * Additional services required to return to the preadmission environment? Yes * Can the patient safely return to the preadmission environment? No * Has this patient been hospitalized within the prior 30 days at any hospital? No Coverage Notice Reviewer: [id number] - Chanel Lozano Notice Issued Date-Time: 03/23/2020 15:48 Notice Type: Patient Choice Letter Notice Delivered To: Patient Relationship to Patient: Self Director Financial Systems Name: Janna Cross Delivery Method: HAND - Hand Delivered Erendira Days: Prior Verbal Notification: Recipient Understood Notice: Yes Recipient Signature: Med Rec Note Co-signed by Attending: Coverage Notice Comment: [facility] Last DP export: 03/23/20 3:31 p Patient Name: JANNA CROSS Page [id number] at 1740 All edits/amendments must be made on the electronic document DICTATION DATE: 03/23/201739 SWEEP MOLDER: ROSELIA 03/23/201739 RPT#: [id number] DC DATE: STATUS: ADM IN [facility] [address] [place] [address] END OF REPORT
[2020-03-23 20:00] VITALS: BP 135/59
--- NOTE | 2020-03-23 20:30 | NUR ---
PT ASSESSMENT COMPLETED. PT IS POST OP DAY 1 LEFT KNEE SURG. SHE GOT UP WITH PT TODAY TO AMBULATE. HER IV WAS REMOVED B/C IT WAS HANGING OUT FROM HER ARM. SHE HAS AN FRANCIS WRAP IN PLACE ON HER LEFT KNEE.
--- NOTE | 2020-03-23 22:00 | NUR ---
PT DOING WELL. SHE HAS USED THE BEDPAN A COUPLE OF TIMES TONIGHT. SHE DID NOT WANT TO GET UP.
[2020-03-24] VITALS: BP 142/66
--- NOTE | 2020-03-24 | NUR ---
RESTING QUIETLY IN BED.
--- NOTE | 2020-03-24 02:30 | NUR ---
PT ASKED TO GET UP TO THE BSC. IT WAS A STRUGGLE FOR HER TO GET UP WITH ONE PERSON. WHEN SHE GOT BACK IN INTO THE BED SHE TRIED TO DO IT ALONE. I DID FUSS AT HER FOR TRYING IT ALONE. HER CALL LIGHT WAS RIGHT IN FRONT OF HER HAND SHE WAS TRANSFERING. SHE WAS REALLY TIRED WHEN SHE GOT BACK INTO BED. I ASKED HER NOT TO TRY THAT AGAIN. SHE VERBALIZED THAT SHE WOULD NOT.
--- NOTE | 2020-03-24 06:16 | NUR ---
PT ASKED FOR PAIN MEDS AFTER USING THE BEDPAN PERCOCET 10 WAS GIVEN PO
[2020-03-24 07:23] LABS: HEMATOCRIT 28.1 % (36.0-48.0); MCH 26.9 pg (26.0-34.0); MCV 83.9 fL (80.0-100.0); MEAN PLATELET VOLUME 9.6 fL (7.4-10.4); RBC 3.35 10x6/uL (4.00-5.40); RDW 13.5 % (11.5-14.5); WBC 10.8 10x3/uL (4.8-10.8)
[2020-03-24] MEDS ORDERED: ELIQUIS2.5 MG PO (09:07)
[2020-03-24] MEDS ORDERED: PERCOCET 10-321 EAC1 PO (09:07)
--- NOTE | 2020-03-24 09:16 | MORECARE ---
CASE MANAGEMENT DISCHARGE SUMMARY PATIENT: AJNNA CROSS GA UNIT: [id number] ADM DATE: 03/22/20 AGE: 59 : 56 SEX: F ROOM/BED: D.1210 AUTHOR: MICHAELA,DOC PHYSICIAN: REFERRING PHYSICIAN: ADAM ALDANA MD DATE OF SERVICE: 03/24/20 Discharge Plan Patient Name: JANNA CROSS Facility: [facility]:[place] : 1960 Planned Disposition: Home or Self Care Anticipated Discharge Date: 03/24/20 Discharge Date: Expected LOS: 2 Initial Reviewer: [email or web address] Initial Review Date: 03/22/2020 Generated: 03/24/20 10:16 am Comments DCP- Discharge Planning Updated by [email or web address]: Chanel Lozano on 03/23/20 3:[address] Patient has chosen [facility] [place], , Fx #[phone]. CM spoke with [place], provided required information and faxed to above number. Patient will go to her daughter's home at [address] [place] [address], [place] [address]. . CM met with patient to discuss initial discharge planning. Patient is in agreement to proceed . Patient reports that she lives at home independently. Patient is alert/oriented. Stairs/steps: 2. PCP: Dr. Marcos Swanson. [facility] Patient states she has been able to obtain all of her prescribed medications. [facility]: No. DME: MARCIA Dalton, BSC delivered GIFT SHOP ASSISTANT. Patient gives permission to speak with family members. Emergency contact: Xuan Colon (dtr) [phone]. Patient states her address is: [address] . Patient is Independent with all ADL's, medication management GIFT SHOP ASSISTANT. CM discussed the availability of HH, Rehab, SNF, OP Therapy, DME services. Patient request [facility] OP Therapy. Patient states she will go home with her daughter, Xuan, for approximately a week. Verified with patient that she has transportation to and from the therapist, patient verifies same.Patient denies hospitalization within the past 30 days. Patient denies the use of community resources GIFT SHOP ASSISTANT. Transportation at time of discharge: Patient's son, who has a car that she can get in and out of easily. CM will follow and assist PRN with DC needs. DCPIA - Discharge Planning Initial Assessment Updated by [email or web address]: Chanel Lozano on 03/23/20 1:57 pm * Is the patient Alert and Oriented? Yes * How many steps to enter\exit or inside your home? * PCP Dr. Marcos Swanson * Pharmacy [facility], [place] * Preadmission Environment Home Alone * ADLs Independent * Equipment Bedside Commode Oxygen Rolling Walker * Other Equipment CPM * List name and contact numbers for known caregivers / representatives who currently or will assist patient after discharge: Xuan Colon (dtr) [phone] Plans to stay with her daughter after DC * Verbal permission to speak to the caregivers and representatives has been obtained from the patient. Yes * Community resources currently utilized None * Please name any agencies selected above. [facility] OP Therapy * Additional services required to return to the preadmission environment? Yes * Can the patient safely return to the preadmission environment? No * Has this patient been hospitalized within the prior 30 days at any hospital? No Coverage Notice Reviewer: [id number] - Chanel Lozano Notice Issued Date-Time: 03/23/2020 15:48 Notice Type: Patient Choice Letter Notice Delivered To: Patient Relationship to Patient: Self Office Aide Name: Janna Cross Delivery Method: HAND - Hand Delivered Erendira Days: Prior Verbal Notification: Recipient Understood Notice: Yes Recipient Signature: Med Rec Note Co-signed by Attending: Coverage Notice Comment: [facility] Last DP export: 03/23/20 4:40 p Patient Name: JANNA CROSS Page [phone] at 0916 All edits/amendments must be made on the electronic document DICTATION DATE: 03/24/20915 COMMUNITY SERVICES OFFICER: ROSELIA 03/24/20915 RPT#: [id number] DC DATE: STATUS: ADM IN [facility] [address] [place] [address] END OF REPORT
[2020-03-24 09:25] VITALS: BP 147/63
--- NOTE | 2020-03-24 09:45 | NUR ---
PT ALERT X 4. BREATH SOUNDS CLEAR BILAT. NO IV ACCESS AT THIS TIME. PT REPORTING PAIN OF 3/10, WILL CONTINUE TO MONITOR. CPM REMOVED. BED LOW, CALL LIGHT IN REACH. NO OTHER NEEDS AT THIS TIME.
--- NOTE | 2020-03-24 15:00 | NUR ---
DISCHARGE PAPERWORK SIGNED, ALL QUESTIONS ANSWERED. ESCORTED OUT VIA WHEELCHAIR.
--- NOTE | 2020-03-24 17:00 | MORECARE ---
CASE MANAGEMENT DISCHARGE SUMMARY PATIENT: JANNA CROSS GA UNIT: [id number] ADM DATE: 03/22/20 AGE: 59 : 56 SEX: F ROOM/BED: D.1210 AUTHOR: MICHAELA,DOC PHYSICIAN: REFERRING PHYSICIAN: ADAM ALDANA MD DATE OF SERVICE: 03/24/20 Discharge Plan Patient Name: JANNA CROSS Facility: [facility]:[place] : 1960 Planned Disposition: Home or Self Care Anticipated Discharge Date: 03/24/20 Discharge Date: 03/24/2020 Expected LOS: 2 Initial Reviewer: [id number] Initial Review Date: 03/22/2020 Generated: 03/24/20 5:59 pm Comments DCP- Discharge Planning Updated by [email or web address]: Chanel Lozano on 03/23/20 3:[address] Patient has chosen [facility], [place], , Fx #[phone]. CM spoke with [place], provided required information and faxed to above number. Patient will go to her daughter's home at [address] [place] [address], [place] [address]. . CM met with patient to discuss initial discharge planning. Patient is in agreement to proceed . Patient reports that she lives at home independently. Patient is alert/oriented. Stairs/steps: 2. PCP: Dr. Marcos Swanson. Pharmacy: [facility] [place]. Patient states she has been able to obtain all of her prescribed medications. [facility]: No. DME: MARCIA Dalton, BSC delivered RECREATION THERAPIST. Patient gives permission to speak with family members. Emergency contact: Xuan Colon (dtr) [phone]. Patient states her address is: [address] . Patient is Independent with all ADL's, medication management RECREATION THERAPIST. CM discussed the availability of HH, Rehab, SNF, OP Therapy, DME services. Patient request [facility] OP Therapy. Patient states she will go home with her daughter, Xuan, for approximately a week. Verified with patient that she has transportation to and from the therapist, patient verifies same.Patient denies hospitalization within the past 30 days. Patient denies the use of community resources RECREATION THERAPIST. Transportation at time of discharge: Patient's son, who has a car that she can get in and out of easily. CM will follow and assist PRN with DC needs. DCPIA - Discharge Planning Initial Assessment Updated by [email or web address]: Chanel Lozano on 03/23/20 1:57 pm * Is the patient Alert and Oriented? Yes * How many steps to enter\exit or inside your home? * PCP Dr. Marcos Swanson * Pharmacy [facility], [place] * Preadmission Environment Home Alone * ADLs Independent * Equipment Bedside Commode Oxygen Rolling Walker * Other Equipment CPM * List name and contact numbers for known caregivers / representatives who currently or will assist patient after discharge: Xuan Colon (dtr) [phone] Plans to stay with her daughter after DC * Verbal permission to speak to the caregivers and representatives has been obtained from the patient. Yes * Community resources currently utilized None * Please name any agencies selected above. [facility] OP Therapy * Additional services required to return to the preadmission environment? Yes * Can the patient safely return to the preadmission environment? No * Has this patient been hospitalized within the prior 30 days at any hospital? No Coverage Notice Reviewer: [id number] - Chanel Lozano Notice Issued Date-Time: 03/23/2020 15:48 Notice Type: Patient Choice Letter Notice Delivered To: Patient Relationship to Patient: Self Ocean Fishing Guide Name: Janna Cross Delivery Method: HAND - Hand Delivered Erendira Days: Prior Verbal Notification: Recipient Understood Notice: Yes Recipient Signature: Med Rec Note Co-signed by Attending: Coverage Notice Comment: [facility] Last DP export: 03/24/20 8:16 a Patient Name: JANNA CROSS Page [phone] at 1700 All edits/amendments must be made on the electronic document DICTATION DATE: 03/24/20 1700 SEWING INSPECTOR: ROSELIA 03/24/20 170 RPT#: [id number] DC DATE:03/24/20 STATUS: DIS IN [facility] [address] [place] [address] END OF REPORT
== END 2020-03-24 15:00 | disposition home or self-care (01) | DRG 470 ==
LOC: D.SDCHOLD 03-17 10:00 → D.M3 03-22 08:55 → D.SDCHOLD 03-22 09:30 → D.M3 03-22 13:25
PROVIDERS: ADMIT Orthopaedic Surgery; ATTEND Orthopaedic Surgery
PROC: 0SRD0JA Replacement of Left Knee Joint with Synthetic Substitute, Uncemented, Open Approach (ICD-10-PCS; principal; 2020-03-22 10:15)
DX: M17.12 Unilateral primary osteoarthritis, left knee (principal); I10 Essential (primary) hypertension